=== PATIENT | male | born 1970 | race Caucasian/White ===

== ENCOUNTER → 2017-04-11 | Outpatient (CLI) | payer BC ==
--- NOTE | 2017-04-11 16:12 | REP ---
Clinical: Acute wheezing. Technique: PA and lateral. Comparison: None. Findings: Mediastinum and cardiac silhouette are normal. Lung fernandes demonstrate chronic interstitial changes and COPD/emphysematous change. No focal consolidation, effusion, or pneumothorax. Skeletal structures are intact. Impression: Chronic COPD/emphysematous changes and diffuse interstitial changes. No focal consolidation. Signed by Chino Noriega MD 04/11/2017 04:04 P
== END ==
LOC: M LRY 15:47
PROVIDERS: ATTEND Nurse Practitioner Family
DX: J44.9 Chronic obstructive pulmonary disease, unspecified (principal); R06.2 Wheezing

== ENCOUNTER → 2020-08-14 | Outpatient (CLI) | payer SELFPAY | LOC: M LABSMTC 11:55 | PROVIDERS: ATTEND Pediatrics | DX: Z20.822 Contact with and (suspected) exposure to COVID-19 (principal) ==

== ENCOUNTER → 2021-08-07 | Outpatient (CLI) | payer SELFPAY | LOC: M LABSMTC 12:40 | PROVIDERS: ATTEND Pediatrics | DX: Z20.822 Contact with and (suspected) exposure to COVID-19 (principal) ==

== ENCOUNTER → 2022-01-06 | Outpatient (CLI) | payer BC | LOC: M WUC 14:54 | PROVIDERS: ATTEND Physician Assistant | DX: R06.02 Shortness of breath (principal); J20.9 Acute bronchitis, unspecified; Z20.828 Contact with and (suspected) exposure to other viral communicable diseases; J43.9 Emphysema, unspecified ==

== ENCOUNTER → 2022-03-19 | Outpatient (CLI) | payer BC | LOC: M RAD 15:53 | PROVIDERS: ATTEND Physician Assistant Medical | DX: J43.9 Emphysema, unspecified (principal); R06.02 Shortness of breath ==

== ENCOUNTER → 2022-04-22 | Outpatient (REF) | payer BC ==
[2022-04-24 17:07] LABS: A1A FOR PHENOTYPE 118 mg/dL (101-187); ALPHA-1-ANTITRYPSIN PHENOTYPE MS (.)
== END ==
LOC: M LAB REF 12:57
PROVIDERS: ATTEND Internal Medicine Pulmonary Disease
DX: J43.9 Emphysema, unspecified (principal)

== ENCOUNTER → 2022-05-06 | Outpatient (CLI) | payer BC | LOC: M CARPUL 12:50 | PROVIDERS: ATTEND Internal Medicine Pulmonary Disease | DX: J44.9 Chronic obstructive pulmonary disease, unspecified (principal); R06.02 Shortness of breath; M25.78 Osteophyte, vertebrae; J84.10 Pulmonary fibrosis, unspecified; J47.9 Bronchiectasis, uncomplicated; J98.4 Other disorders of lung ==

== ENCOUNTER → 2023-06-05 | Outpatient (CLI) | payer BC | LOC: M PLAIMG 12:58 | PROVIDERS: ATTEND Internal Medicine Pulmonary Disease | DX: R91.8 Other nonspecific abnormal finding of lung field (principal); J43.9 Emphysema, unspecified ==

== ENCOUNTER → 2023-10-12 | Outpatient (CLI) | payer BC | LOC: M RAD 13:58 | PROVIDERS: ATTEND Internal Medicine Pulmonary Disease | DX: R91.8 Other nonspecific abnormal finding of lung field (principal); J43.9 Emphysema, unspecified; J84.10 Pulmonary fibrosis, unspecified ==

== ENCOUNTER → 2024-04-07 | Outpatient (REF) | payer BC ==
[2024-04-10 04:21] LABS: LDL DIRECT 129 mg/dL (<100)
== END ==
LOC: M LAB REF 12:39
PROVIDERS: ATTEND Physician Assistant Medical
DX: E78.2 Mixed hyperlipidemia (principal)

== ENCOUNTER → 2024-04-25 | Outpatient (CLI) | payer BC | LOC: M RAD 14:43 | PROVIDERS: ATTEND Internal Medicine Pulmonary Disease | DX: R91.8 Other nonspecific abnormal finding of lung field (principal); J44.9 Chronic obstructive pulmonary disease, unspecified ==

== ENCOUNTER → 2024-06-21 | Outpatient (CLI) | payer BC | LOC: M PLARAD 08:24 | PROVIDERS: ATTEND Internal Medicine Pulmonary Disease | DX: R91.1 Solitary pulmonary nodule (principal) | CPT/HCPCS: 78815; A9552 ==

== ENCOUNTER → 2024-06-30 | Outpatient (REF) | payer BC ==
[2024-06-30 12:34] LABS: INR 0.89; PARTIAL THROMBOPLASTIN TIME 29.4 SECONDS (24.8-34.2); PROTHROMBIN TIME 12.3 SECONDS (12.5-14.5)
== END ==
LOC: M LAB REF 12:16
PROVIDERS: ATTEND Internal Medicine Pulmonary Disease
DX: R91.8 Other nonspecific abnormal finding of lung field (principal)

== ENCOUNTER → 2025-02-15 | Outpatient (CLI) | payer BC | LOC: M RAD 15:26 | PROVIDERS: ATTEND Internal Medicine Pulmonary Disease | DX: R91.8 Other nonspecific abnormal finding of lung field (principal); J43.9 Emphysema, unspecified; J44.9 Chronic obstructive pulmonary disease, unspecified; K44.9 Diaphragmatic hernia without obstruction or gangrene ==

== ENCOUNTER → 2025-04-04 | Outpatient (CLI) | payer BC | LOC: M RAD 14:26 | PROVIDERS: ATTEND Internal Medicine Pulmonary Disease | DX: J43.9 Emphysema, unspecified (principal); J98.4 Other disorders of lung ==

== ENCOUNTER 2025-07-10 07:35 | Day surgery (SDC) | payer BC ==
[~2025-07-10] VITALS: Ht 190.5 cm; Wt 86.6 kg
[~2025-07-10 07:35] MED LIST: FLUT1BLS8 PO
[2025-07-10] MEDS ORDERED: LIDOCAINE 2% 100 MG/5 ML SDV (FOR ANES.) As Ordered ONE (07:58)
[2025-07-10] MEDS ORDERED: GLYCOPYRROLATE INJ 0.2 MG/ML 2 ML VIAL As Ordered ONE (08:32)
[2025-07-10 09:49] VITALS: TEMP 97.9
[2025-07-10 10:14] VITALS: BP 123/62; O2SAT 96
== END 2025-07-10 10:19 | disposition home or self-care (01) ==
LOC: M OPP 07:35
PROVIDERS: ATTEND Surgery
DX: Z12.11 Encounter for screening for malignant neoplasm of colon (principal); K63.5 Polyp of colon; K57.30 Diverticulosis of large intestine without perforation or abscess without bleeding; Z79.51 Long term (current) use of inhaled steroids; J44.9 Chronic obstructive pulmonary disease, unspecified; Z87.891 Personal history of nicotine dependence
CPT/HCPCS: 45385; 88305; J1596